=== PATIENT | male | born 1975 | race Caucasian/White ===

== ENCOUNTER 2021-05-22 11:50 | Emergency (ER) | payer OTHER ==
[2021-05-22] MEDS ORDERED: ONDA4ODT MM (12:34)
[2021-06-04] MEDS ORDERED: DEXA6 PO (12:53)
[2021-06-04] MEDS ORDERED: Prinivil10 MG PO (12:54)
[2021-06-04] MEDS ORDERED: XARELTO20 MG PO (12:55)
== END 2021-05-23 14:10 | disposition home or self-care (01) ==
LOC: ER 11:50
DX: U07.1 COVID-19 (principal); F17.290 Nicotine dependence, other tobacco product, uncomplicated
CPT/HCPCS: 99283-25; A9270; M0243; Q0243

== ENCOUNTER 2021-05-23 14:55 | Emergency (ER) | payer OTHER ==
[~2021-05-23 14:55] MED LIST: ONDA4ODT MM
[2021-06-04] MEDS ORDERED: DEXA6 PO (12:53)
[2021-06-04] MEDS ORDERED: Prinivil10 MG PO (12:54)
[2021-06-04] MEDS ORDERED: XARELTO20 MG PO (12:55)
== END 2021-05-23 17:02 | disposition home or self-care (01) ==
LOC: ER 14:55
DX: U07.1 COVID-19 (principal); R09.02 Hypoxemia; Z79.899 Other long term (current) drug therapy
CPT/HCPCS: 99282; J1100

== ENCOUNTER 2024-12-26 08:11 | Emergency (ER) | payer OTHER ==
[~2024-12-26] VITALS: Ht 188 cm; Wt 97.5 kg
[~2024-12-26 08:11] MED LIST changes: +DEXA6 PO; +Prinivil10 MG PO; +XARELTO20 MG PO
[2024-12-26 11:20] VITALS: BP 180/130
== END 2024-12-26 11:21 | disposition home or self-care (01) ==
LOC: ER 08:11
DX: M25.571 Pain in right ankle and joints of right foot (principal); M25.471 Effusion, right ankle; Z88.0 Allergy status to penicillin
CPT/HCPCS: 73610; 73630; 93971; 99284-25